=== PATIENT | female | born 1960 | race Caucasian/White ===

== ENCOUNTER 2016-12-21 17:42 | Observation (INO) | payer OTHER ==
[2016-12-21 18:13] VITALS: PULSE 71; RESP 20
[2016-12-21] MEDS ORDERED: Sodium Chloride 0.9% 1,000 ML IV ONE ×2 (18:37→19:29)
[2016-12-21] MEDS ORDERED: Sodium Chloride 0.9% 1,000 ML ONE ×2 (18:43)
[2016-12-21 18:56] LABS: BASO # 0.1 K/uL (0.0-0.2); BASO % 0.5 % (0.0-2.0); EOS % 0.2 % (0.0-4.0); HEMATOCRIT 44.3 % (34.0-47.0); LYMPH % 7.4 % (20.0-40.0); MEAN CELL VOLUME 88.2 fL (81.0-99.0); MEAN CORPUSCULAR HEMOGLOBIN 29.6 pg (27.0-31.0); MEAN CORPUSCULAR HGB CONC 33.6 g/dL (33.0-37.0); MEAN PLATELET VOLUME 10.3 fL (7.2-11.7); MONO # 0.3 K/uL (0.0-0.8); MONO % 2.2 % (0.0-10.0); PLATELET COUNT 258 K/uL (130-400); RED CELL DISTRIBUTION WIDTH 13.4 % (11.5-14.5); WHITE BLOOD COUNT 13.2 K/uL (4.8-10.8)
--- NOTE | 2016-12-21 19:28 | C.PDOC ---
History Of Present Illness 56 y/o female presents to the ED for evaluation of vomiting and dizziness which began yesterday. Patient states symptoms are questionably associated with movement. She denies abdominal pain, diarrhea, fever, bilious. Denies prior PSH. VOMITING, DIZZY SINCE YEST. ?[place] W MOVEMENT. NO ABD PAIN, DIARRHEA, FEVER. BILIOUS. DENIES PRIOR PSH. EXAM MILD DIST NONTOXIC HEENT NO NYSTAGMUS MMM ABD NEG NONDISTEND SKIN WARM DRY NEURO NO FOCAL DEF Time Seen by Provider: 12/21/16 19:16 Chief Complaint (Nursing): Abdominal Pain History Per: Patient History/Exam Limitations: no limitations Onset/Duration Of Symptoms: Hrs Current Symptoms Are (Timing): Still Present Quality Of Discomfort: "Pain" Associated Symptoms: Vomiting, Other (dizziness). denies: Fever, Chills Abnormal Vaginal Bleeding: No Past Medical History Reviewed: Historical Data, Nursing Documentation, Vital Signs Vital Signs: Last Vital Signs Temp 97.4 F L 12/21/16 17:55 Pulse 71 12/21/16 18:09 Resp 20 12/21/16 18:09 BP 148/78 12/21/16 18:09 Pulse Ox 100 12/21/16 21:22 - Medical History PMH: No Chronic Diseases Surgical History: No Surg Hx Family History: States: Unknown Family Hx - Social History Hx Alcohol Use: No Hx Substance Use: No - Immunization History Hx Tetanus Toxoid Vaccination: No Hx Influenza Vaccination: No Hx Pneumococcal Vaccination: No Review Of Systems Constitutional: Negative for: Fever Gastrointestinal: Positive for: Vomiting. Negative for: Abdominal Pain, Diarrhea Neurological: Positive for: Dizziness Physical Exam - Physical Exam Appears: Non-toxic, Other (mild distress ) Skin: Normal Color, Warm, Dry Head: Atraumatic, Normacephalic Eye(s): bilateral: Normal Inspection, Other (no nystagmus ) Ear(s): Bilateral: Normal Nose: Normal, No Discharge Oral Mucosa: Moist Throat: Normal, No Erythema, No Exudate Neck: Supple Chest: Symmetrical Cardiovascular: Rhythm Regular Respiratory: Normal Breath Sounds Gastrointestinal/Abdominal: Soft, No Tenderness, No Distention, No Guarding, No Rebound Extremity: Normal ROM, Capillary Refill (less than 2 seconds ) Neurological/Psych: Oriented x3, Other (no focal deficits ) Gait: Steady ED Course And Treatment - Laboratory Results Result Diagrams: 12/21/16 18:51 12/21/16 20:11 ECG: Interpreted By Me ECG Rhythm: Sinus Rhythm ECG Interpretation: Normal Rate From EC O2 Sat by Pulse Oximetry: 100 (on RA) Pulse Ox Interpretation: Normal - Radiology CXR: Interpreted by Me CXR Interpretation: Yes: No Acute Disease Progress Note: labs, CT A/P, CT Head, EKG, CXR ordered and reviewed. Patient received Antivert PO, Zofran IVP, and IV fluids. ED OBSERVATION Discharge: Yes Date of observation admission: 12/21/16 Time of observation admission: 19:00 - Observation admission statement Patient is being placed in observation because:: VOMITING, DIZZY - Goals of Observation Goals of observation are:: SX IMPROVE, NO ACUTE FINDINGS - Progress Note Progress Note: 12/21/16 20:57 AMBUL WO DIFF. TOLERATING PO. CT REPORTS PENDING 12/21/16 21:22 CO PERSIST VERTIGO. VSS. REPORT PENDINGS 12/21/16 22:28 VERTIGO RESOLVED. TOLERATING PO. NEURO INTACT. PS RECENTLY DX SINUSITIS. ADVISED FU PMD, ENT Disposition Counseled Patient/Family Regarding: Studies Performed, Diagnosis, Need For Followup, Rx Given - Disposition Disposition: HOME/ ROUTINE Disposition Time: 22:29 Condition: IMPROVED - Clinical Impression Clinical Impression: Vomiting, Vertigo - Scribe Statement The provider has reviewed the documentation as recorded by the Scribe (Maryjane He) Provider Attestation: All medical record entries made by the Scribe were at my direction and personally dictated by me. I have reviewed the chart and agree that the record accurately reflects my personal performance of the history, physical exam, medical decision making, and the department course for this patient. I have also personally directed, reviewed, and agree with the discharge instructions and disposition.
[2016-12-21] MEDS ORDERED: Iohexol 240 (50 ml) PO ONE (19:30)
[2016-12-21] MEDS ORDERED: Iohexol 240 (50 ml) ONE (19:54)
[2016-12-21 20:06] LABS: RBC URINE 1 /hpf (0-3); TRANSITIONAL EPITHIAL < 1 /hpf (0-3); URINE BACTERIA RARE (<OCC); URINE BILIRUBIN NEGATIVE (NEGATIVE); URINE BLOOD NEGATIVE (NEGATIVE); URINE COLOR Yellow (YELLOW); URINE GLUCOSE (UA) NORMAL (Normal); URINE KETONE NEGATIVE (NEGATIVE); URINE LEUKOCYTE ESTERASE NEG Leu/uL (Negative); URINE PROTEIN NEGATIVE (NEGATIVE); URINE UROBILINOGEN NORMAL mg/dL (0.2-1.0); WBC URINE < 1 /hpf (0-5)
[2016-12-21 20:23] LABS: CHLORIDE 108 mmol/L (98-107); SODIUM 142 mmol/L (132-148)
[2016-12-21 20:24] LABS: POTASSIUM 3.9 mmol/L (3.6-5.2)
[2016-12-21 20:26] LABS: GFR AFRICAN-AMERICAN > 60
[2016-12-21 20:27] LABS: BLOOD UREA NITROGEN 15 mg/dL (7-17); CALCIUM 8.8 mg/dl (8.6-10.4); CARBON DIOXIDE 22 mmol/L (22-30); GLUCOSE,RANDOM 98 mg/dL (65-105)
[2016-12-21] MEDS ORDERED: Iohexol 300 100 ML IJ ONE (20:40)
--- NOTE | 2016-12-21 22:05 | CT ---
EXAM: CT Head Without Intravenous Contrast EXAM DATE/TIME: 12/21/2016 7:30 PM CLINICAL HISTORY: 56 years old, female; Signs and symptoms; Dizziness; Additional info: Dizzy, vomiting TECHNIQUE: Axial computed tomography images of the head/brain without intravenous contrast. All CT scans at this facility use one or more dose reduction techniques, viz.: automated exposure control; ma/kV adjustment per patient size (including targeted exams where dose is matched to indication; i.e. head); or iterative reconstruction technique. COMPARISON: There are no prior studies for comparison. FINDINGS: Brain: Ventricles are normal in size and configuration. There is no midline shift. There are no intra-axial or extra-axial mass lesions or areas of hemorrhage. There are no abnormal fluid collections. Ventura-white differentiation is maintained. Ventricles: See above. Bones: Cranial vault is intact. Soft tissues: unremarkable Sinuses: There is no acute sinusitis. Ears and mastoids: Middle ears and mastoids are unremarkable Orbits: Orbital contents are unremarkable. IMPRESSION: No acute intracranial abnormality
--- NOTE | 2016-12-21 22:23 | CT ---
EXAM: CT Abdomen and Pelvis With Intravenous Contrast EXAM DATE/TIME: 12/21/2016 7:30 PM CLINICAL HISTORY: 56 years old, female; Signs and symptoms; Vomiting TECHNIQUE: Axial computed tomography images of the abdomen and pelvis with intravenous contrast. All CT scans at this facility use one or more dose reduction techniques, viz.: automated exposure control; ma/kV adjustment per patient size (including targeted exams where dose is matched to indication; i.e. head); or iterative reconstruction technique. Coronal and sagittal reformatted images were created and reviewed. CONTRAST: 100 mL of omnipaque 300 administered intravenously. COMPARISON: There are no prior studies for comparison. FINDINGS: Lower thorax: Heart size is normal. There is a small hiatal hernia. There is atelectasis at the lung bases. ABDOMEN: Liver: There is fatty infiltration of the liver. Gallbladder and bile ducts: unremarkable Pancreas: unremarkable Spleen: unremarkable Adrenals: unremarkable Kidneys and ureters: There is a tiny left renal cyst.Kidneys and ureters are otherwise unremarkable. Stomach and bowel: Stomach is partially distended with contrast and air. Rotation is normal. There is no obstruction. Terminal ileum is unremarkable.Appendix is not visualized.There is no pericecal inflammation.Colon is incompletely distended which limits evaluation. There is scattered diverticulosis Appendix: See above. PELVIS: Bladder: Urinary bladder is partially distended. Reproductive: Uterus is enlarged and lobular. There are uterine calcifications and masses. Right adnexa is difficult to evaluate. Left adnexa is unremarkable. ABDOMEN and PELVIS: Intraperitoneal space: There is no free air or free fluid. Bones/joints: There are degenerative changes in the osseus structures. Soft tissues: There is a small fat containing umbilical hernia. There is a small fat containing umbilical hernia. Vasculature: Vascular structures are unremarkable. Lymph nodes: There is no pathologic adenopathy. IMPRESSION: No acute solid visceral or bowel abnormality; fibroid uterus
[2016-12-21 22:51] LABS: NEUTROPHIL 85 % (50-75); TOTAL CELLS COUNTED 100
[2016-12-21 22:53] LABS: LARGE PLATELETS PRESENT; SMUDGE CELLS PRESENT
[2016-12-21 23:24] VITALS: BP 126/78; TEMP 97.5; O2SAT 98
--- NOTE | 2016-12-22 07:41 | RAD ---
PROCEDURE: CHEST RADIOGRAPH, 1 VIEW HISTORY: Shortness of breath COMPARISON: None available. FINDINGS: LUNGS: Mild venous congestion. Mild patchy increased markings at the left lung base. PLEURA: No pneumothorax or pleural fluid seen. CARDIOVASCULAR: Normal. OSSEOUS STRUCTURES: No significant abnormalities. VISUALIZED UPPER ABDOMEN: Normal. OTHER FINDINGS: None. IMPRESSION: Mild venous congestion. Mild patchy increased markings at the left lung base.
--- NOTE | 2016-12-23 01:43 | CARD ---
APPROVED REPORT EKG Measurement Heart [id number] <Conclusion> Normal sinus rhythm Normal ECG
== END 2016-12-21 22:29 | disposition home or self-care (01) ==
LOC: C.ER 17:42 → C.9OBSV 19:00
PROVIDERS: ADMIT Emergency Medicine; ATTEND Emergency Medicine
DX: R11.10 Vomiting, unspecified (principal); R42 Dizziness and giddiness
CPT/HCPCS: 70450; 71010; 74177; 80048; 81001; 84484; 85025; 93005; 96361; 96374; 99283; G0378; J2405; J7040; Q9966; Q9967